=== PATIENT | female | born 1960 | race Caucasian/White ===

== ENCOUNTER → 2017-01-28 | Outpatient (CLI) | payer OTHER ==
[~2017-01-28] MED LIST: ASPIRIN EC325 MG OR; ATENOLOL25 MG PO; ATENOLOL50 MG PO; BUPROPION75 MG PO; IMDUR 30MG. TAB30 MG PO; INDOCIN25 M1; LASIX20 MG PO; LASIX40 MG OR; LISINOPRIL 5MG T5 MG; LISINOPRIL20 MG PO; LOVASTATIN20 MG; MECLIZINE 25MG25 MG PO; MEDROL 4MG. DOSE4 MG PO; PLAVIX75 MG PO; VICODIN 5/500 T1 TAB PO; WELLBUTRIN SR150 MG PO; WELLBUTRIN75 MG; ZOFRAN4 MG PO; [UNRECOGNIZED DRUG - CODE]; [UNRECOGNIZED DRUG - CODE] PO
== END ==
LOC: RT 13:00
DX: R07.9 Chest pain, unspecified (principal)

== ENCOUNTER → 2017-01-31 | Outpatient (CLI) | payer OTHER ==
[~2017-01-31] MED LIST changes: +ALLOPURINOL100 MG PO; +ASPIRIN 81MG TA81 MG PO; +AUGMENTIN 875-1 EACH PO; +CARVEDILOL3.125 MG PO; +CHLORDIAZEPOXIDE5 MG PO; +CRESTOR10 MG PO; +FUROSEMIDE40 MG PO; +LOSARTAN POTAS100 MG PO; +LYRICA50 MG PO; +SPIRONOLACTONE25 MG NG; +SYMBICORT1 AER IH; +VICTOZA6 MG/ML SC
--- NOTE | 2017-01-31 17:20 | RADIOLOGY REPORT PS360 ---
CHEST(2 VIEWS-NOT PORTABLE) HISTORY: Trouble breathing HOARSNESS ORDERING PHYSICIAN: Carlos Blood MD PATIENT AGE: 56 years COMPARISON: 07/26/2014 FINDINGS: There is mild cardiomegaly with mild pulmonary venous congestion. There is evidence of old granulomatous disease. No lobar consolidation or collapse. There are degenerative changes in the thoracic spine. IMPRESSION: Cardiomegaly with mild CHF
== END ==
LOC: RAD 16:26
DX: R49.0 Dysphonia (principal)

== ENCOUNTER 2017-02-15 09:32 | Emergency (ER) | payer OTHER ==
[~2017-02-15] VITALS: Ht 162.6 cm; Wt 103.9 kg
[~2017-02-15 09:32] MED LIST changes: -ALLOPURINOL100 MG PO; -ASPIRIN 81MG TA81 MG PO; -AUGMENTIN 875-1 EACH PO; -CARVEDILOL3.125 MG PO; -CHLORDIAZEPOXIDE5 MG PO; -CRESTOR10 MG PO; -FUROSEMIDE40 MG PO; -LOSARTAN POTAS100 MG PO; -LYRICA50 MG PO; -SPIRONOLACTONE25 MG NG; -SYMBICORT1 AER IH; -VICTOZA6 MG/ML SC
--- OUTSIDE RECORDS SUMMARY | 2017-02-15 09:44 | External Medical Summary Rpt | CCD ---
Author Author , BRYON Organization [facility] Address Unknown Phone [email or web address] Care Team Providers Care Crystalizer Tender Name Role Phone Mt Centeno III, MD, Mt Solis III, MD Purpose Continuity of Care Document - 04-28-2013 through 2016 Problems Code Diagnosis DOS Provider Status R51 HEADACHE 12-06-2016 250.00 250.00 DIAB 04-28-2013 [facility], TYPE Hospital II OR UNSPEC TYPE, NOT UNCNTRLD 305.1 305.1 04-28-2013 [place] TOBACCO USE [facility] 401.9 401.9 04-28-2013 [place] HYPERTENSIO [facility] N NOS Hospital 780.4 780.4 04-28-2013 [place] DIZZINESS [facility] GIDDINESS V14.8 V14.8 04-28-2013 [place] HX-DRUG [facility] ALLERGY [facility] E11.9 TYPE 2 DIABETES MELLITUS WITHOUT COMPLICATIO NS H81.399 OTHER PERIPHERAL VERTIGO, UNSPECIFIED EAR M54.31 SCIATICA, RIGHT SIDE R11.2 NAUSEA WITH VOMITING, UNSPECIFIED Allergies, Adverse Reactions, Alerts Type Drug Allergy Propensity to adverse reactions to drug Adverse Reaction to Substance Substance Reaction Severity SULFA (sulfonamide) Unknown Unknown Sulfonamide Related Unknown Unknown Aspirin Unknown Unknown Medications Na ND Rx Da Fi Fi Am Da Di Ph RX Ph St me C No te ll ll ou ys ag ar # ys at rm s nt no ma ic us Or Da si cy ia de te s n re d ON 00 02 0 No DA 64 -2 NS 16 2- Lo ET 08 20 ng RO 02 14 er N 5 HC Ac L ti 4 ve MG /2 ML AL ME 49 02 0 No CL 88 -2 IZ 40 2- Lo IN 03 20 ng E 50 14 er 25 1 Ac MG ti ve TA BL ET Sa 63 02 0 No li 80 -2 ne 70 2- Lo 10 20 ng Fl 07 14 er us 5 h Ac 10 ti ML ve Sy ri ng e SO 00 02 0 No TY 00 -2 -M 90 2- Lo ED 04 20 ng RO 72 14 er L 2 12 Ac 5 ti MG ve AL Vital Signs 04-28-2013 18:55 Name Value Interpretat Reference Comment ion Range BP 69 mm[Hg] Diastolic BP Systolic 117 mm[Hg] Heart 75 /min Rate/Pulse O2% 98 % Respiratory 20 /min Rate 04-28-2013 18:08 Name Value Interpretat Reference Comment ion Range BP 70 mm[Hg] Diastolic BP Systolic 112 mm[Hg] Heart 68 /min Rate/Pulse Respiratory 20 /min Rate 04-28-2013 16:39 Name Value Interpretat Reference Comment ion Range O2% 94 % Results Labs Lab Lab Date Result Refere Interp Status Commen Order Detail nces retati t Range on Bas Metab 2000 Pnl SerPl (02-03-2017 12:49) Comment: Meter: [id number] Magnesium Mill Operator: [id number] Kassy Go Glucose 216 70-130 complet BldC 017 mg/dL ed Glucomt 12:49 r-mCnc Bas Metab 2000 Pnl SerPl (02-03-2017 06:16) Comment: Meter: [id number] Magnesium Mill Operator: [id number] Reno Crane Glucose 185 70-130 complet BldC 017 mg/dL ed Glucomt 06:16 r-mCnc Lipid pnl with direct LDL SerPl (02-03-2017 02:37) Comment: Cholesterol Reference Ranges: Comment: Desirable < 200 mg/dL Comment: Borderline 200-239 mg/dL Comment: High Risk > 239 mg/dL Comment: Comment: Triglyceride Reference Ranges: Comment: Normal < 150 mg/dL Comment: Borderline 150-199 mg/dL Comment: High 200-499 mg/dL Comment: Very High > 499 mg/dL Comment: Comment: HDL Reference Ranges: Comment: Low < 40 mg/dL Comment: High > 59 mg/dL Comment: Comment: LDL Reference Ranges: Comment: Optimal < 100 mg/dL Comment: Near Optimal 100-129 mg/dL Comment: Borderline 130-159 mg/dL Comment: High 160-189 mg/dL Comment: Very High > 189 mg/dL Cholest 120 0-200 complet 017 mg/dL ed SerPl-m 02:37 Cnc Trigl 02-03-2 262 0-150 complet SerPl-m 017 mg/dL ed Cnc 02:37 HDLc 02-03-2 29 40-60 complet SerPl-m 017 mg/dL ed Cnc 02:37 Articho 02-03-2 66 0-130 complet ke IgE 017 mg/dL ed Qn 02:37 Hgb A1c Bld (02-03-2017 02:37) Comment: The [place] [employer] recommends maintenance of Hemoglobin A1C at 7.0% or lower. Goals for Hemoglobin A1C reduction may need to be modified if hypoglycemia is a problem. Hgb A1c 8.20 % 4.80-5. complet MFr 017 60 ed Bld 02:37 Bas Metab 2000 Pnl SerPl (02-02-2017 21:27) Comment: Meter: [id number] Magnesium Mill Operator: [id number] [place] Rosa Maria Glucose 350 70-130 complet BldC 017 mg/dL ed Glucomt 21:27 r-mCnc CBC W Diff pnl,unspecified Bld (02-02-2017 16:25) WBC 02-02-2 10.83 3.50-10 complet nRBC 017 10*3/mm .80 ed cor # 16:25 3 Bld RBC # 1129-2 4.19 3.89-5. complet Bld 017 10*6/mm 14 ed Auto 16:25 3 Hgb 02-02-2 11.9 11.5-15 complet Bld-mCn 017 g/dL .5 ed c 16:25 Hct VFr 02-02-2 37.1 % 34.5-44 complet Bld 017 .0 ed Auto 16:25 MCV RBC 02-02-2 88.5 fL 80.0-99 complet Auto 017 .0 ed 16:25 MCH RBC 29-2 28.4 pg 27.0-31 complet Qn 017 .0 ed Auto 16:25 MCHC 29-2 32.1 32.0-36 complet RBC 017 g/dL .0 ed Auto-mC 16:25 nc RDW RBC 29-2 15.0 % 11.3-14 complet 017 .5 ed Auto-Rt 16:25 o RDW RBC -29-2 48.6 fl 37.0-54 complet Auto 017 .0 ed 16:25 PMV Bld 02-02-2 10.0 fL 6.0-12. complet Auto 017 0 ed 16:25 Platele 02-02-2 243 150-450 complet t # Bld 017 10*3/mm ed Auto 16:25 3 Neutrop 02-02-2 74.1 % 41.0-71 complet hils/le 017 .0 ed uk NFr 16:25 Bld Auto Lymphoc 02-02-2 16.3 % 24.0-44 complet ytes/le 017 .0 ed uk NFr 16:25 Bld Auto Monocyt 02-02-2 8.8 % 0.0-12. complet es/leuk 017 0 ed NFr 16:25 Bld Auto Eosinop 02-02-2 0.0 % 0.0-3.0 complet hil/moraima 017 ed k NFr 16:25 Bld Auto Basophi 02-02-2 0.1 % 0.0-1.0 complet ls/leuk 017 ed NFr 16:25 Bld Auto Imm 02-02-2 0.7 % 0.0-0.6 complet Granulo 017 ed cytes/l 16:25 euk NFr Bld Neutrop 02-02-2 8.03 1.50-8. complet hils # 017 10*3/mm 30 ed Bld 16:25 3 Auto Lymphoc 02-02-2 1.76 0.60-4. complet ytes # 017 10*3/mm 80 ed Bld 16:25 3 Auto Monocyt 02-02-2 0.95 0.00-1. complet es # 017 10*3/mm 00 ed Bld 16:25 3 Auto Eosinop 02-02-2 0.00 0.00-0. complet hil # 017 10*3/mm 30 ed Bld 16:25 3 Auto Basophi 1129-2 0.01 0.00-0. complet ls # 017 10*3/mm 20 ed Bld 16:25 3 Auto Imm 1129-2 0.08 0.00-0. complet Granulo 017 10*3/mm 03 ed cytes # 16:25 3 Bld Bas Metab 2000 Pnl SerPl (02-02-2017 16:25) Comment: National [employer] Guidelines Comment: Comment: Stage Description GFR Comment: 1 Normal or High 90+ Comment: 2 Mild decrease 60-89 Comment: 3 Moderate decrease 30-59 Comment: 4 Severe decrease 15- Comment: 5 Kidney failure <15 Glucose 232 70-100 complet 017 mg/dL ed Bld-mCn 16:25 c BUN 2 27 9-23 complet Bld-mCn 017 mg/dL ed c 16:25 Creat 2 1.00 0.60-1. complet Bld-mCn 017 mg/dL 30 ed c 16:25 Sodium 139 132-146 complet Bld-sCn 017 mmol/L ed c 16:25 Potassi 4.2 3.5-5.5 complet um 017 mmol/L ed Bld-sCn 16:25 c Chlorid 103 99-109 complet e 017 mmol/L ed SerPl-s 16:25 Cnc CO2 27.0 20.0-31 complet SerPl-s 017 mmol/L .0 ed Cnc 16:25 Calcium 9.5 8.7-10. complet 017 mg/dL 4 ed XXX-sCn 16:25 c GFR/BSA 57 >60 complet .pred 017 mL/min/ ed SerPl 16:25 1.73 MDRD-Ar VRat BUN/Cre 27.0 7.0-25. complet at 017 0 ed SerPl 16:25 Anion 9.0 3.0-11. complet Gap3 017 mmol/L 0 ed SerPl-s 16:25 Cnc Comp Metab 1998 Pnl SerPl (02-02-2017 16:25) Comment: National Kid[employer] Guidelines Comment: Comment: Stage Description GFR Comment: 1 Normal or High 90+ Comment: 2 Mild decrease 60-89 Comment: 3 Moderate decrease 30-59 Comment: 4 Severe decrease 15-29 Comment: 5 Kidney failure <15 CO2 02-02-2 27.0 20.0-31 complet SerPl-s 017 mmol/L .0 ed Cnc 16:25 Glucose 232 70-100 complet 017 mg/dL ed Bld-mCn 16:25 c BUN 02-02-2 27 9-23 complet Bld-mCn 017 mg/dL ed c 16:25 Creat 2 1.00 0.60-1. complet Bld-mCn 017 mg/dL 30 ed c 16:25 Sodium 139 132-146 complet Bld-sCn 017 mmol/L ed c 16:25 Potassi 4.2 3.5-5.5 complet um 017 mmol/L ed Bld-sCn 16:25 c Chlorid 103 99-109 complet e 017 mmol/L ed SerPl-s 16:25 Cnc Calcium 9.5 8.7-10. complet 017 mg/dL 4 ed XXX-sCn 16:25 c Prot 7.3 5.7-8.2 complet SerPl-m 017 g/dL ed Cnc 16:25 Albumin 4.40 3.20-4. complet 017 g/dL 80 ed SerPl-m 16:25 Cnc ALT 19 U/L 7-40 complet SerPl w 017 ed 16:25 P-5'-P- cCnc AST 24 U/L 0-33 complet SerPl-c 017 ed Cnc 16:25 ALP 111 U/L 25-100 complet SerPl-c 017 ed Cnc 16:25 Bilirub 0.5 0.3-1.2 complet 017 mg/dL ed SerPl-m 16:25 Cnc GFR/BSA 57 >60 complet .pred 017 mL/min/ ed SerPl 16:25 1.73 MDRD-Ar VRat Globuli 2.9 complet n Ur 017 gm/dL ed Elph-mC 16:25 nc Albumin 02-02-2 1.5 1.5-2.5 complet /Glob 017 g/dL ed SerPl 16:25 BUN/Cre 27.0 7.0-25. complet at 017 0 ed SerPl 16:25 Anion 2 9.0 3.0-11. complet Gap3 017 mmol/L 0 ed SerPl-s 16:25 Cnc TSH SerPl (02-02-2017 16:25) TSH 2 0.524 0.350-5 complet SerPl 017 mIU/mL .350 ed DL<=0.0 16:25 5 mIU/L-a Cnc NT-proBNP SerPl-mCnc (02-02-2017 16:25) BNP 288.0 0.0-100 complet SerPl-m 017 pg/mL .0 ed Cnc 16:25 Bas Metab 2000 Pnl SerPl (02-02-2017 16:07) Comment: Meter: [id number] Magnesium Mill Operator: [id number] White Sophia Glucose 225 70-130 complet BldC 017 mg/dL ed Glucomt 16:07 r-[facility] COMPREHENSIVE METABOLIC PANEL (04-28-2013 16:45) Glucose 146 74-106 complet 014 mg/dL ed Bld-mCn 16:45 c BUN 17 7-18 complet Bld-mCn 014 mg/dL ed c 16:45 Creat 1.0 0.6-1.0 complet SerPl-m 014 mg/dL ed Cnc 16:45 Creat 120 50-200 complet Cl 014 ML/MIN ed predict 16:45 ed SerPl C-G-vRa te GFR/BSA 58 59- complet .pred 014 ML/MIN ed SerPl 16:45 Schwart z-vRate Sodium 140 136-145 complet SerPl-s 014 mmoL/L ed Cnc 16:45 Potassi 4.2 3.5-5.1 complet um 014 mmoL/L ed SerPl-s 16:45 Cnc Chlorid 102 98-107 complet e 014 mmoL/L ed SerPl-s 16:45 Cnc CO2 28 21.0-32 complet SerPl-s 014 mmoL/L .0 ed Cnc 16:45 Calcium 9.5 8.5-10. complet 014 mg/dL 1 ed SerPl-m 16:45 Cnc Prot 7.4 6.4-8.2 complet SerPl-m 014 gm/dL ed Cnc 16:45 Albumin 4.0 3.4-5.0 complet 014 gm/dL ed SerPl-m 16:45 Cnc Globuli 02-22-2 3.4 1.3-3.2 complet n 014 gm/dL ed Ser-mCn 16:45 c Albumin 04-28-2 1.2 UNK 1.1-1.8 complet /Glob 014 ed SerPl-m 16:45 Rto Bilirub 04-28-2 0.5 0.2-1.0 complet 014 mg/dL ed SerPl-m 16:45 Cnc AST 04-28-2 16 U/L 15-37 complet SerPl-c 014 ed Cnc 16:45 ALT 04-28-2 28 U/L 12-78 complet SerPl-c 014 ed Cnc 16:45 ALP 04-28-2 163 U/L 50-136 complet SerPl-c 014 ed Cnc 16:45 CBC with AUTO DIFF (04-28-2013 16:45) WBC # 02-22-2 10.8 4.8-10. complet Bld 014 K/MM3 8 ed Auto 16:45 RBC # 22-2 4.42 4.2-5.4 complet Bld 014 M/mm3 ed Auto 16:45 Hgb 04-28-2 13.6 12.2-16 complet Bld-mCn 014 g/dL .2 ed c 16:45 Hct Fr 04-28-2 39.6 % 37.0-47 complet Bld 014 .0 ed 16:45 MCV RBC 04-28-2 89.6 fl 82.2-97 complet 014 .8 ed 16:45 MCH RBC 04-28-2 30.7 pg 27-31.2 complet Qn 014 ed Auto 16:45 MEAN 04-28-2 34.3 31.8-35 complet CORPUSC 014 g/dl .4 ed ULAR 16:45 HGB CONC RDW RBC 22-2 14.9 % 11.5-17 complet Auto 014 .5 ed 16:45 Platele 04-28-2 250 142-424 complet t Bld 014 K/mm3 ed Ql 16:45 Manual MEAN 04-28-2 7.6 fl 7.4-10. complet PLATELE 014 4 ed T 16:45 VOLUME Granulo 04-28-2 81.0 % 37.0-80 complet cytes 014 .0 ed Fr Bld 16:45 Auto LYMPH % 04-28-2 12.1 % 10-50.0 complet 014 ed 16:45 Monocyt 04-28-2 5.4 % 1.7-9.3 complet es Fr 014 ed Bld 16:45 Auto Eosinop 04-28-2 1.1 % 0.1-12. complet hil Fr 014 0 ed Bld 16:45 Auto Basophi 04-28-2 0.4 % 0.1-2.0 complet ls Fr 014 ed Bld 16:45 Auto Granulo 04-28-2 8.7 1.8-7.8 complet cytes # 014 K/mm3 ed Bld 16:45 Auto Lymphoc 04-28-2 1.3 0.7-4.5 complet ytes Fr 014 K/mm3 ed Bld 16:45 Auto Monocyt 04-28-2 0.6 0.1-1.0 complet es # 014 K/mm3 ed Bld 16:45 Auto Eosinop 04-28-2 0.1 0.0-0.4 complet hil # 014 K/mm3 ed Bld 16:45 Auto Basophi 04-28-2 0.0 0-0.2 complet ls # 014 K/MM3 ed Bld 16:45 Auto Encounters Encounter Start End Date Code Location Performer Type Date Emergency HILLARY Solis (ER) 4 16:45 4 18:57 [facility] [place]
--- OUTSIDE RECORDS SUMMARY | 2017-02-15 09:44 | External Medical Summary Rpt | CCD ---
Demographics Preferred Language [place]ine[place] Marital Status Unknown Faith Affiliation Unknown Race Unknown Ethnic Group Unknown Author Author , BRYON SLATER Address Unknown Phone [email or web address] Immunization Name Date Rout CVX Reac Dose Comm Prov Is Faci e tion ent ider Refu lity Give sed n Hep 12- 43 999 Hist H149 No H149 B, - oric adul 02 al t Info rmat ion - Sour ce Unsp ecif ied
--- OUTSIDE RECORDS SUMMARY | 2017-02-15 09:44 | External Medical Summary Rpt | CCD ---
Author Author , BRYON Organization [facility] Address Unknown Phone [email or web address] Care Team Providers Care Order Entry Specialist Name Role Phone Mt Centeno III, MD, Mt Solis III, MD Purpose Continuity of Care Document - 04-28-2013 through 2016 Problems Code Diagnosis DOS Provider Status R51 HEADACHE 12-06-2016 250.00 250.00 DIAB 04-28-2013 [facility], TYPE Hospital II OR UNSPEC TYPE, NOT UNCNTRLD 305.1 305.1 04-28-2013 [place] TOBACCO USE [facility] 401.9 401.9 04-28-2013 [place] HYPERTENSIO [facility] N NOS Hospital 780.4 780.4 04-28-2013 Cameron DIZZINESS [facility] GIDDINESS V14.8 V14.8 04-28-2013 [place] HX-DRUG [facility] ALLERGY [facility] E11.9 TYPE 2 DIABETES MELLITUS WITHOUT [...] 2000 Pnl SerPl (02-03-2017 12:49) Comment: Meter: [id number] Sighter: [id number] Kassy Go Glucose 216 70-130 complet BldC 017 mg/dL ed Glucomt 12:49 r-mCnc Bas Metab 2000 Pnl SerPl (02-03-2017 06:16) Comment: Meter: [id number] Sighter: [id number] Ren[place] Crane Glucose 185 70-130 complet BldC [...] Hgb A1c Bld (02-03-2017 02:37) Comment: The [place] [employer] recommends maintenance of Hemoglobin A1C at 7.0% or lower. Goals for Hemoglobin A1C reduction may need to be modified if hypoglycemia is a problem. Hgb A1c 8.20 % 4.80-5. complet MFr 017 60 ed Bld 02:37 Bas Metab 2000 Pnl SerPl (02-02-2017 21:27) Comment: Meter: [id number] Sighter: [id number] [place] Rosa Maria Glucose 350 70-130 complet [...] 2000 Pnl SerPl (02-02-2017 16:07) Comment: Meter: [id number] Sighter: [id number] White Sophia Glucose 225 70-130 complet BldC 017 mg/dL ed Glucomt 16:07 r-[facility] COMPREHENSIVE METABOLIC PANEL (04-28-2013 16:45) Glucose 146 [...] HILLARY Solis (ER) 4 16:45 4 18:[address] [facility] [place]
--- OUTSIDE RECORDS SUMMARY | 2017-02-15 09:44 | External Medical Summary Rpt | CCD ---
Demographics Preferred Language Greek Marital Status Unknown Faith Affiliation Unknown Race Unknown Ethnic Group Unknown Author Author , BRYON SLATER Address Unknown Phone [email or web address] Immunization Name Date Rout CVX Reac Dose Comm Prov Is Faci e tion ent ider Refu lity Give sed n Hep 12- 43 999 Hist H149 No H149 B, - oric adul 02 al t Info rmat ion - Sour ce Unsp ecif ied
--- OUTSIDE RECORDS SUMMARY | 2017-02-15 09:44 | External Medical Summary Rpt | CCD ---
Author Author [facility] Organization [facility] Address Unknown Phone Unavailable Purpose Continuity of Care Document - through 2016
[2017-02-15] MEDS ORDERED: FUROSEMIDE40 MG PO (09:49)
[2017-02-15] MEDS ORDERED: ALLOPURINOL100 MG PO (09:49)
[2017-02-15] MEDS ORDERED: SYMBICORT1 AER IH (09:49)
[2017-02-15] MEDS ORDERED: VICTOZA6 MG/ML SC (09:49)
[2017-02-15] MEDS ORDERED: ASPIRIN 81MG TA81 MG PO (09:50)
[2017-02-15] MEDS ORDERED: SPIRONOLACTONE25 MG NG (09:50)
[2017-02-15] MEDS ORDERED: CARVEDILOL3.125 MG PO (09:50)
[2017-02-15] MEDS ORDERED: LOSARTAN POTAS100 MG PO (09:50)
[2017-02-15] MEDS ORDERED: CRESTOR10 MG PO (09:51)
[2017-02-15] MEDS ORDERED: LYRICA50 MG PO (09:51)
[2017-02-15] MEDS ORDERED: CHLORDIAZEPOXIDE5 MG PO (09:51)
[2017-02-15] MEDS ORDERED: AUGMENTIN 875-1 EACH PO (10:08)
--- NOTE | 2017-02-15 10:09 | Urgent Treatment Center Report ---
History of Present Issue Date/Time Seen by Provider 02/15/17 0956 Visit Reason Pt arrived:Walked Presenting Problem:PT C/O SINUS PRESSURE AND SOA Location if Accident: Onset of symptoms date/time:/ or onset unknown for:MEDICAL HX UNKNOWN Have you (or family members/close friends) recently traveled outside the [place]? N If Yes, where/when: Have you had exposure to infectious disease within the past month? TB? Other? Specify: Patient state that was seen at Dr Mustafa office yesterday but didn't inform him that she was having any sinsus issues States that she was having pain and pressure in her sinus on the right side States that last night she began running a fever and states when she blows her nose it is dark yellow with some blood in it State that the right side of her face feels swollen and she is hurting in her teeth States that she use to get sinus infections all the time and this feels like it did then. State that symptoms started over a week ago then went away and now has come back worse. State that she cannot breath out of her nose ALLERGIES Coded Allergies: Sulfa (Sulfonamide Antibiotics) (Mild, 02/15/17) Home Medications Reported Medications Liraglutide (Victoza 2-Ernesto) 6 MG SC DAILY BUDESONIDE/FORMOTEROL FUMARATE (Symbicort 80-4.5 Mcg Inhaler) 1 PUFF IH BID Furosemide (Furosemide 40MG) 40 MG PO DAILY Allopurinol 300 MG PO TID ASPIRIN (Aspirin) 81 MG PO DAILY Losartan Potassium (Losartan 100MG) 25 MG PO DAILY Spironolactone (Spironolactone) 25 MG NG BID Carvedilol (Carvedilol 3.125MG) 3.125 MG PO BID Rosuvastatin Calcium (Crestor) 10 MG PO QHS Chlordiazepoxide Hcl (Chlordiazepoxide) 5 MG PO DAILY Pregabalin (Lyrica 50MG) 75 MG PO TID History Medical History General CAD? No Angina: Yes AR: No Hypertension? Yes Hyperlipidemia? Yes CHF? No DVT? No PE? No COPD? No Asthma? No Anemia? No GERD? No Gastric ulcers? No GI Bleed? No Hernia? No Thyroid Problems? No Hypothyroidism? No CVA? No Seizures? No Diabetes? Yes Insulin Dependent: No Insulin Pump: No Home FSBS? Yes Renal Insuffiency? No UTI? Yes Stones? Yes BPH? No GB Disease: Yes Nephritic Syndrome? No Asplenia? No Hepatitis? No Sickle Cell Disease? No Arthritis? No Migraines? No Cataracts? No Glaucoma? No MRSA? No HIV? No TB? No Anxiety? No Depression? No Cancer? No More? No Immunization HX DT/Tetanus NOT SURE Flu LAST YEAR Pneumonia NEVER Surgical Hx Previous Surgery?Y BACK SURG Cholecystectomy T&A APPENDECTOMY STENT RCA, AUGUST 2004 Family History Family HX Diabetes No CAD Yes Hypertension Yes Hyperlipidemia Yes Cancer Yes TB No Social History Smoking Hx Smoker: Never Smoker Tobacco: No Packs/day < 1 Pack Alcohol Alcohol: No Review of Systems All Other Systems Reviewed and Negative ENT nose congestion. Physical Exam Vital Signs Vital Signs Date Time Temp Pulse Resp B/P Pulse O2 O2 Flow FiO2 Ox Delivery Rate 02/15 0946 98.9 87 20 93/59 98 General Appearance normal appearance, WD/WN, no apparent distress Ear, Nose, Throat sinus pain/drainage, nasal congestion, Tenderness noted maxillary sinus on right side of face reports dark yellow sputum with some traces of blood when she blows her nose Respiratory Status Yes: trachea midline, chest symmetrical, non tender chest. No: respiratory distress. Lung Sounds bilateral: normal breath sounds, lungs clear. Cardiovascular normal exam, regular rate/rhythm, no peripheral edema Neurologic alert, normal exam, oriented x 3 Medical Decision Making LABS/Meds/Orders Pt receiving controlled substance in ED? No Progress [facility] [[email or web address]] Progress Notes Comment Spoke with Sisi in Pharmacy and agreed with treatment of Augmentin. Patient wearing life vest due to previous diagnosis. No complaints at this time with any symptoms associated with the life vest Departure Departure Time of Disposition 1006 Disposition DC Home or Self Care(routine) Clinical Impression Primary Impression: Sinusitis Qualifiers: Sinusitis location: maxillary Chronicity: unspecified Qualified Code: J32.0 - Chronic maxillary sinusitis Condition STABLE Referrals Carlos Blood MD (Family): 3 Days-Call Office Or sooner if worsening of symptoms Patient Instructions DI for Sinusitis, Sinus Headache, Sinusitis, Sinusitis ( Alternative Therapy) Additional Instructions Start antibiotic. Sinus infections may take 2-3 days to notice much improvement so be sure to use conservative measures as discussed for symptoms Ok to continue Sudafed Flonase 2 spray in each nostril daily to help with nasal congestion, sinus an ear pressure/inflammation Lots of Fluids Sleep elevated Humidifer/vaporizer Augmentin can cause GI effects. Probiotics may help to prevent these symptoms Discharge Counseling Counseled pt/family regarding diagnosis, test results, medications/RX, home care, follow up needs Prescriptions Current Visit Scripts Amoxicillin/Potassium Clav (Augmentin 875-125 Tablet) 1 EACH PO BID #20 TAB at 1973
[2017-02-15 10:16] VITALS: BP 93/59
== END 2017-02-15 10:16 | disposition home or self-care (01) ==
LOC: UTC 09:32
DX: J32.0 Chronic maxillary sinusitis (principal)